=== PATIENT | female | born 2000 | race Two or more races ===

== ENCOUNTER 2021-12-26 13:17 | Emergency (ER) | payer OTHER ==
[~2021-12-26] VITALS: Ht 165.1 cm; Wt 107.0 kg
[2021-12-26 16:43] VITALS: BP 148/99
[2021-12-26] MEDS ORDERED: CEPH-509 PO (17:17)
== END 2021-12-26 17:21 | disposition home or self-care (01) ==
LOC: ER 13:17
DX: L05.01 Pilonidal cyst with abscess (principal); L25.9 Unspecified contact dermatitis, unspecified cause; Z91.040 Latex allergy status